=== PATIENT | female | born 1945 | race Caucasian/White ===

== ENCOUNTER → 2023-10-11 07:35 | Outpatient (REF) | payer OTHER, SELFPAY | LOC: HWWDC 07:35 | PROVIDERS: ATTENDING PHYSICIAN Internal Medicine | DX: Z12.31 Encounter for screening mammogram for malignant neoplasm of breast (principal) | CPT/HCPCS: 77063; 77067 ==

== ENCOUNTER 2025-01-28 10:28 | Emergency (ER) | payer OTHER, SELFPAY ==
[2025-01-28 10:29] VITALS: BMI 30.7
[2025-01-28 10:38] VITALS: BP 155/80
[2025-01-28 10:50] LABS: Hematocrit 35.8 % (37.0-47.0); Hemoglobin 12.0 g/dL (12.0-16.0); Mean Corp Hgb Conc. 33.5 g/dL (33.0-37.0); Mean Corpuscular Volume 92.0 fL (81.0-99.0); Nucleated Red Blood Cells % 0 %; Platelet Count 173 10^3/uL (130-400); Red Cell Dist. Width 12.5 % (11.5-14.5)
[2025-01-28 10:59] LABS: INR 0.94; PT 12.9 Sec (11.4-14.6)
[2025-01-28 11:05] LABS: ALT (SGPT) 19 U/L (0-35); AST (SGOT) 22 U/L (14-36); Albumin 4.2 g/dl (3.5-5.0); Alkaline Phosphatase 80 U/L (38-126); Blood Urea Nitrogen 21 mg/dl (7-17); Calcium 8.7 mg/dl (8.4-10.2); Carbon Dioxide 26 mmol/L (22-30); Chloride 107 mmol/L (98-107); Glucose 126 mg/dl (70-99); Potassium 4.2 mmol/L (3.5-5.1); Sodium 138 mmol/L (135-145); Total Protein 7.0 g/dl (6.3-8.2); eGFR > 60.00
[2025-01-28 11:13] LABS: Troponin I < 0.012 ng/ml
[2025-01-28 13:08] VITALS: BP 155/73
--- NOTE | 2025-01-28 13:28 | ED.GENMED ---
History of Present Illness
General
Chief Complaint: Chest Pain
Source: patient
Exam Limitations: none
Time Seen by Provider: 01/28/25 12:56
Nursing documentation reviewed up to this point in time: agreed with
History of Present Illness
History of Present Illness:
79-year-old female with history hypertension who presents to the emergency department for evaluation of left-sided chest pain for the past 3 days. Patient states that she has had a constant pain in her left chest since this past Monday. She says
that it started about 30 minutes - 1 hour following an hour of weed -whacking in the yard.
She describes the pain as sharp and stabbing in quality and significantly worse with inspiration as well as certain movements. She denies any clear exertional component to symptoms or any associated fever, cough, lower leg swelling/pain.
She does report feeling somewhat short of breath mainly because it is very painful to take a deep breath.
She denies any recent travel or surgery. She�s not on any oral anticoagulation.
Past History
Past History
ED Past Medical History: HTN and Hypothyroidism
ED Past Surgical History: Appendectomy, Orthopedic (Bilateral knee) and Other (Thyroidectomy)
Social History
Tobacco: Non-smoker
Alcohol: Occasional
Drug: None
Personal:
Living: with family
Review of Systems
Review of Systems
Allergies reviewed?: Yes
All Other Systems: ROS reviewed and negative except as documented in HPI and ROS
Phy Exam
Physical Exam
Physical Exam:
Vitals: Hypertensive, otherwise vital signs stable. Afebrile
General: Patient is well appearing, no acute distress
Skin: Warm and dry, no rashes or lesions
Head: Normocephalic, atraumatic
Eyes: Sclera nonicteric.
Throat: Protecting airway
Neck: Normal ROM, no cervical spine tenderness, no meningismus
Cardiac: Regular rate and rhythm, no murmurs. Significant point tenderness to left chest wall without any rash or ecchymosis.
Pulm: Normal respiratory effort, no wheezes, rales, rhonchi heard on exam.
Abdomen: Abdomen soft and nontender.
Extremities: No evidence of cyanosis or edema. 2+ palpable DP pulses bilaterally.
Neuro: AAOx3. Grossly intact.
Psychiatric: Normal affect.
Scores
Heart Score for Chest Pain Patients
STEMI patient?: Not applicable
Course
Orders/Labs/Results
Orders:
Orders
01/28/25 10:29
ECG [Electrocardiogram (*1)] Urgent
Reason for Study: Chest Pain
EKG- Treatment ONCE
01/28/25 10:37
EKG- Treatment ONCE
01/28/25 10:40
Complete Blood Count/With Diff Urgent
Comprehensive Metabolic Panel Urgent
D-Dimer Urgent
Comment: D-DIMER ADDED ON BY FLOOR 1:30PM 01-28-25
Prothrombin Time Urgent
Troponin I Urgent
01/28/25 13:27
Add On- LAB Urgent
Tests Added?: d-dimer
EKG- Treatment ONCE
CR Chest - 2 Views Urgent
Comment:
Reason For Exam: left sided chest pain
01/28/25 13:40
Electrocardiogram (*1) Urgent
Reason for Study: Chest Pain
01/28/25 14:06
Troponin I Urgent
01/28/25 15:28
Lidocaine [Lidocaine 4% Patch] 1 patch TOPICAL NOW STA
Apply Lidocaine patch(s) to:: left chest
01/28/25 16:02
Incentive Spirometry [Rx Incentive Spirometry] [RESP] Urgent
Frequency: q1h while awake
Abnormal Lab Results
01/28/25
10:40
RBC 3.89 L 10^6/uL
(4.20-5.40)
Hct 35.8 L %
(37.0-47.0)
D-Dimer 0.53 H ug/mlFEU
(0.00-0.50)
BUN 21 H mg/dl
(7-17)
Glucose 126 H mg/dl
(70-99)
01/28/25 10:40
01/28/25 10:40
Vital Signs
Initial and Last Documented VS:
Initial Vital Signs
Temp Pulse Resp BP Pulse Ox
98.1 F 66 18 155/80 100
01/28/25 10:38 01/28/25 10:38 01/28/25 10:38 01/28/25 10:38 01/28/25 10:38
Last Documented Vital Signs
Temp Pulse Resp BP Pulse Ox
98.1 F 53 20 155/73 99
01/28/25 10:38 01/28/25 13:08 01/28/25 13:08 01/28/25 13:08 01/28/25 13:28
MDM/Problems Addressed
Differential Diagnosis Includes:
Not limited to: Chest wall strain, costochondritis, pleurisy, pneumonia, acute coronary syndrome, pulmonary embolism, etc.
MDM/Problems Addressed:
73-year-old female with reproducible left sided chest wall pain for three days worse with inspiration and certain movements. No fever, exertional chest pain, productive cough. Vitals and physical exam as above. Patient resting comfortably, however,
was significant discomfort with movement and focal tenderness to left chest wall. Her lungs are clear and heart sounds regular. No clinical evidence of DVT on exam. No ecchymosis or rash noted to chest wall.
Differential broad. Given focal tenderness as well as correlation to strenuous activity � possible muscular strain of chest wall. However, given age and pleuritic component � will work up with labs, serial troponins, d-dimer, chest x-ray. Patient
given tylenol for pain as patient reports allergies to 'all other pain medications'
Update: Labs reviewed. No clinically significant abnormalities. EKG without acute ischemic findings. Serial troponins negative. Age adjusted d-dimer normal. CXR without acute findings
Overall � work-up in emergency department negative. At this point � suspect muscular etiology. Feel stable for discharge home with supportive care, pain managment. Will discharge with incentive spirometer to prevent complications. Advised follow up
with primary care. Return precautions discussed.
Chronic conditions affecting care:
Hypertension
Acute Exacerbation and/or Progression of Chronic Illness:
Acutely hypertensive
*Radiology
Radiology exam reviewed: preliminary read by ED provider (Chest x-ray reviewed by me-no acute findings) and radiology read reviewed
*Pulse Oximetry
SaO2: 99
Oxygen Mode of Delivery: Room air
Patient hypoxic: no
*EKG
Interpreted by ED Provider?: Yes
EKG Intrepretation Date: 01/28/25
Interpretation: abnormal
Comparison EKG: changes noted
Heart Rate: 64
Rate: normal
Rhythm: sinus
[place]: normal axis
Interval: normal QT interval
QRS Pattern: normal QRS
Ischemia: non-specific ST changes
*Public Policy Professor Interpretation
Rate: normal
Interpretation: normal
Heart Rate: 68
Rhythm: sinus
*Critical Care Note
Total Time (30-74mins, 75-104mins- exclusive of procedures): Not Applicable
ED Attending Note
-
Portions of this chart may have been created with voice recognition software.� Occasional wrong word or��sound alike� substitutions may have occurred due to the inherent limitations of voice recognition software.
Discharge Plan
Departure
Patient Disposition: Home (Routine Discharge)
Date of Disposition: 01/28/25
Time of Disposition: 15:53
Patient with high blood pressure during this ER visit?: Yes
Discharge Problem:
Anterior chest wall pain
Instructions: Chest pain - Discharge instructions, BLOOD PRESSURE
Prescriptions:
New
lidocaine 5 % adhesive patch,medicated
1 patch topical DAILY PRN (Reason: pain) Qty: 15 0RF
No Action
multivitamin Tablet
1 tab PO DAILY Qty: 0
clopidogrel 75 MG tablet
75 mg PO DAILY Qty: 30 0RF
levothyroxine 75 mcg tablet
75 mcg PO DAILY
lisinopril 5 mg tablet
5 mg PO DAILY
cholecalciferol (vitamin D3) [Vitamin D3] 25 mcg (1,000 unit) Tablet
25 mcg PO DAILY
omega 4-cib-wmf-fish oil [Fish Oil] 1,000 mg (120 mg-180 mg) Capsule
1 cap PO DAILY
ciprofloxacin HCl [Cipro] 500 mg tablet
500 mg PO Q12H Qty: 14 0RF
metronidazole 500 mg tablet
500 mg PO Q8H Qty: 21 0RF
Referrals:
Alpa Lowe MD [Family Provider, Internal Medicine] - Follow up in 5-7 days
Activity Restrictions/Additional Instructions:
RETURN TO THE EMERGENCY DEPARTMENT WITH ANY WORSENING CHEST PAIN OR CHEST PAIN WORSE WITH EXERTION OR ASSOCIATED SHORTNESS OF BREATH/DIFFICULTY BREATHING, FEVERS OR PRODUCTIVE COUGH, LIGHTHEADEDNESS, WORSENING CURRENT SYMPTOMS, ANY OTHER CONCERNS
- As discussed, your workup in the emergency department showed no acute findings. I suspect your pain is likely muscular in nature.
- You can take Tylenol as needed for pain apply lidocaine patches to the affected area. Please use incentive spirometer 10 times per hour when awake to inflate your lungs.
- Follow-up with your primary care provider for further evaluation/management to ensure that your symptoms are improving
Monitor your symptoms closely and return to the emergency department with any acute worsening/new symptoms or any other concerns
Interventions
Interventions:
*Risk Screen - Suicide Last Done: 01/28/25 10:38
*General Assessment Last Done: 01/28/25 10:38
*Neglect/Abuse Screening Last Done: 01/28/25 10:38
*ED- Fall Risk Assessment Last Done: 01/28/25 16:17
*ED COVID-19 Vaccine History Last Done: 01/28/25 16:17
*Nursing Disposition Last Done: 01/28/25 16:17
ED- Cardiac Assessment Last Done: 01/28/25 13:11
Discharge Date and Time
Discharge Date/Time: 01/28/25 16:18
Print Language: AZERI
[2025-01-28 13:51] LABS: D-Dimer 0.53 ug/mlFEU (0.00-0.50)
[2025-01-28 15:01] LABS: Troponin I < 0.012 ng/ml
[2025-01-28] MEDS: LIDOCAINE 4% PATCH 1 PATCH TOPICAL (15:49)
== END 2025-01-28 16:18 | disposition home or self-care (01) ==
LOC: EMR 10:28
PROVIDERS: Physician Assistant; EMERGENCY PHYSICIAN Student in an Organized Health Care Education/Training Program; FAMILY PHYSICIAN Internal Medicine
DX: R07.89 Other chest pain (principal); I10 Essential (primary) hypertension; E89.0 Postprocedural hypothyroidism; Z90.49 Acquired absence of other specified parts of digestive tract
CPT/HCPCS: 99285; 71046; 80053; 84484; 85025; 85379; 85610; 93005

== ENCOUNTER → 2025-02-05 07:15 | Outpatient (REF) | payer OTHER, SELFPAY | LOC: WDC 07:15 | PROVIDERS: ATTENDING PHYSICIAN Internal Medicine | DX: Z12.39 Encounter for other screening for malignant neoplasm of breast (principal); Z78.0 Asymptomatic menopausal state | CPT/HCPCS: 77063; 77067; 77080 ==

== ENCOUNTER → 2025-06-07 08:16 | Outpatient (REF) | payer OTHER, SELFPAY ==
[2025-06-07 13:59] LABS: Blood Urea Nitrogen 22 mg/dl (7-17); Calcium 9.1 mg/dl (8.4-10.2); Carbon Dioxide 29 mmol/L (22-30); Chloride 103 mmol/L (98-107); Glucose 96 mg/dl (70-99); Potassium 4.8 mmol/L (3.5-5.1); Sodium 138 mmol/L (135-145); eGFR > 60.00
== END ==
LOC: REG 08:16
PROVIDERS: ATTENDING PHYSICIAN Internal Medicine Gastroenterology; FAMILY PHYSICIAN Internal Medicine
DX: R10.32 Left lower quadrant pain (principal)
CPT/HCPCS: 36415; 80048

== ENCOUNTER → 2025-06-09 08:45 | Outpatient (REF) | payer OTHER, SELFPAY | LOC: RAD 08:45 | PROVIDERS: ATTENDING PHYSICIAN Internal Medicine Gastroenterology; FAMILY PHYSICIAN Internal Medicine | DX: R10.32 Left lower quadrant pain (principal) | CPT/HCPCS: 74177; Q9967 ==